=== PATIENT | male | born 1970 | race Caucasian/White ===

== ENCOUNTER → 2024-07-14 06:22 | Day surgery (SDC) | payer OTHER, SELFPAY | LOC: GI 06:22 | PROVIDERS: ATTENDING PHYSICIAN Internal Medicine Gastroenterology | DX: Z12.11 Encounter for screening for malignant neoplasm of colon (principal); K64.8 Other hemorrhoids; K62.89 Other specified diseases of anus and rectum | CPT/HCPCS: G0121 ==

== ENCOUNTER → 2025-08-03 12:54 | Outpatient (REF) | payer OTHER, SELFPAY | LOC: RCS 12:54 | PROVIDERS: ATTENDING PHYSICIAN Internal Medicine; FAMILY PHYSICIAN Family Medicine | DX: I25.10 Atherosclerotic heart disease of native coronary artery without angina pectoris (principal); I25.2 Old myocardial infarction; R07.89 Other chest pain | CPT/HCPCS: 93017; 93350 ==